=== PATIENT | female | born 2000 | race Hispanic/Latino ===

== ENCOUNTER 2025-06-24 01:51 | Emergency (ER) | payer MEDICAID, OTHER ==
[~2025-06-24] VITALS: Ht 167.6 cm; Wt 99.8 kg
[~2025-06-24 01:51] MED LIST: PREN1TAB80 PO
[2025-06-24 02:31] LABS: IMMATURE GRANULOCYTE ABSOLUTE 0.04 K/uL (0-1); NUCLEATED RED BLOOD CELLS 0.0 % (0.0-0.19); PLATELET COUNT (AUTO) 323 K/uL (130-400); RED BLOOD CELL COUNT(AUTO) 4.78 MIL/uL (4.00-5.50); RED CELL DISTRIBUTION WIDTH 13.7 % (11.0-15.5); WHITE BLOOD COUNT (AUTO) 11.5 K/uL (4.8-10.8)
--- NOTE | 2025-06-24 02:36 | ERN ---
General Chief Complaint: Psych Evaluation Stated Complaint: SUICIDAL IDEATION Time Seen by MD: 02:21 History of Present Illness Initial Comments No 24-year-old female here for evaluation of suicidal ideation. Patient states that she was in her normal state of health when she got into an argument with a family member at home. States she was recently kicked out of the house and started developing anxiety. She found out today that she was (about five weeks) and she was seen in the hospital in [place] which confirmed the . She is a poor historian at this time however states that she has suicidal ideation. States that she has a plan/multiple plans to kill herself however states that she is too much of a pussy to go through with the it right now. She is not willing at this time to tell me her plan. She does mention that she took two sleeping pills from [place] red started with the letter E. Denies auditory visual hallucination Allergies: Coded Allergies: No Known Allergies (Unverified Allergy, Unknown, 06/07/24) Home Meds Reported Medications Vits W-Ca,Fe,FA(<1Mg) ( Vitamins) 27 Mg Iron-800 Mcg Tablet, 1 TAB PO DAILY for 30 Days, #30 TAB 0 Refills 06/07/24 Past Medical History Past Medical History: No Pertinent History Past Surgical History: None Female( History) : 1 Para: 0 Aborts: 0 Psych: (+) suicidal ideation Physical Exam Physical Exam Dictation Psych: Actively suicidal, tearful but redirectable. General Appearance: (+) no apparent distress Orientation: (+) alert, (+) oriented x 3 Head/Face Trauma: No Eye: bilateral eye normal inspection, bilateral eye PERRL, bilateral eye EOMI Ear, Nose, Throat: (+) hearing grossly normal, (+) normal ENT inspection, (+) moist mucous membraine Neck: (+) normal inspection, (+) supple Heart: (+) regular; (-) murmur Gastrointestinal: (+) soft, (+) non-tender Neurologic/Psychiatric: (+) normal speech, (+) no motor defecits Results Laboratory and Microbiology Lab and Micro Result Laboratory Tests Test 06/24/25 02:22 06/24/25 02:24 White Blood Count 11.5 K/uL (4.8-10.8) H Red Blood Count 4.78 MIL/uL (4.00-5.50) Hemoglobin 14.4 g/dL (12.0-16.0) Hematocrit 42.4 % (36-48) Mean Corpuscular Volume 88.7 fL (79-99) Mean Corpuscular Hemoglobin 30.1 pg (27.0-33.0) Mean Corpuscular Hemoglobin Concent 34.0 g/dL (32.0-36.0) Red Cell Distribution Width 13.7 % (11.0-15.5) Platelet Count 323 K/uL (130-400) Mean Platelet Volume 10.6 fL (7.5-10.5) H Immature Granulocyte % (Auto) 0.3 % (0-1) Neutrophils (%) (Auto) 75.4 % (40.0-77.0) Lymphocytes (%) (Auto) 18.4 % (21.0-51.0) L Monocytes (%) (Auto) 5.2 % (3.0-13.0) Eosinophils (%) (Auto) 0.4 % (0.0-8.0) Basophils (%) (Auto) 0.3 % (0.0-5.0) Neutrophils # (Auto) 8.7 K/uL (1.8-7.7) H Lymphocytes # (Auto) 2.1 K/uL (1.0-4.8) Monocytes # (Auto) 0.6 K/uL (0.1-1.0) Eosinophils # (Auto) 0.05 K/uL (0.00-0.70) Basophils # (Auto) 0.04 K/uL (0.00-0.20) Absolute Immature Granulocyte (auto 0.04 K/uL (0-1) Nucleated Red Blood Cells 0.0 % (0.0-0.19) Sodium Level 134 mmol/L (136-145) L Potassium Level 3.7 mmol/L (3.5-5.1) Chloride Level 99 mmol/L (101-111) L Carbon Dioxide Level 28 mmol/L (21-32) Blood Urea Nitrogen 7 mg/dL (7-18) Creatinine 0.6 mg/dL (0.5-1.0) Glomerular Filtration Rate Calc 128 mL/min (>90) Random Glucose 102 mg/dL (70-105) Total Calcium 8.6 mg/dL (8.5-10.1) Human Chorionic Gonadotropin, Quant 5351 mIU/mL (0-5) H Salicylates Level < 2.8 mg/dL (2.8-20.0) L Acetaminophen Level < 1 mcg/mL (10-30) L Serum Alcohol < 3 mg/dL (0-10) Urine Color YELLOW (YELLOW) Urine Appearance CLOUDY (CLEAR) H Urine pH 6.0 (5.0-8.0) Urine Specific [place] 1.031 (1.001-1.031) Urine Protein 30 mg/dL (NEGATIVE) H Urine Glucose (UA) NEGATIVE mg/dL (NEGATIVE) Urine Ketones NEGATIVE mg/dL (NEGATIVE) Urine Occult Blood MODERATE (NEGATIVE) H Urine Nitrate 2+ (NEGATIVE) H Urine Bilirubin NEGATIVE mg/dL (NEGATIVE) Urine Urobilinogen 0.2 mg/dL (0.2-1.0) Urine Leukocyte Esterase 75 Mo/uL (NEGATIVE) H Urine RBC 2-5 /HPF (0-1) H Urine WBC 11-25 /HPF (0-1) H Urine Squamous Epithelial Cells MOD /HPF (0-2) Urine Bacteria RARE /HPF (None Seen) Urine Opiates Screen NEGATIVE (NEGATIVE) Urine Barbiturates Screen NEGATIVE (NEGATIVE) Urine Phencyclidine Screen NEGATIVE (NEGATIVE) Urine Amphetamines Screen NEGATIVE (NEGATIVE) Urine Benzodiazepines Screen NEGATIVE (NEGATIVE) Urine Cocaine Screen NEGATIVE (NEGATIVE) Urine Marijuana (THC) Screen NEGATIVE (NEGATIVE) MDM 24-year-old female here for evaluation of suicidal ideation. We will get screening labs and consult tropical once medically cleared. ED Course Orders Procedure Category Date Status Time Cbc With Differential LAB 06/24/25 Complete 02:13 Basic Metabolic Panel LAB 06/24/25 Complete 02:13 Salicylate LAB 06/24/25 Complete 02:13 Acetaminophen LAB 06/24/25 Complete 02:13 Drug Screen Urine LAB 06/24/25 Complete 02:13 Urinalysis Profile LAB 06/24/25 Complete 02:13 Alcohol, Blood LAB 06/24/25 Complete 02:13 Hcg,Quantitative LAB 06/24/25 Complete 02:13 Culture Urine MEHUL 06/24/25 In Process 03:09 Ceftriaxone 1g Vial PHA 06/24/25 In Process (Rocephine 1g Inj) 07:00 Current Medications Medications (Trade) Dose Ordered Sig/Marcos Route PRN Reason Start Time Stop Time Status Last Admin Dose Admin Ceftriaxone Sodium (ROCEphine 1G INJ) 1 gm ONCE ONCE IVPB 06/24/25 07:00 06/24/25 07:01 Vital Signs Date Time Temp Pulse Resp B/P (MAP) Pulse Ox O2 Delivery O2 Flow Rate FiO2 06/24/25 05:11 98.1 92 16 128/88 99 Room Air* 0 21 06/24/25 01:54 98.1 94 16 138/91 100 Room Air 0 As per tropical screener patient has not suicidal. She had an argument with significant other at home and was upset and started seeing things she did not mean. She is currently not suicidal. However she does show signs of a UTI. We will treat this with Rocephin here and discharged home on p.o. antibiotics. All labs and imaging reviewed with the patient. All questions answered at this time DX & DISP Disposition: Discharge Departure Impression: Primary Impression: Acute anxiety Additional Impressions: UTI (urinary tract infection), , Domestic problems Condition: Stable Scripts Cephalexin (Cephalexin) 500 Mg Tablet 1 TAB PO BID for 7 Days, #14 TAB 0 Refills Prov: ML BARNETT MD 06/24/25 Referrals: SELF,REFERRAL (PCP) ML BARNETT MD Jun 24, 2025 02:36
[2025-06-24 02:40] LABS: CREATININE 0.6 mg/dL (0.5-1.0); GLOMERULAR FILTR. RATE CALC 128 mL/min (>90); GLUCOSE,RANDOM 102 mg/dL (70-105); SODIUM SERUM 134 mmol/L (136-145); UREA NITROGEN, BLOOD 7 mg/dL (7-18)
[2025-06-24 03:03] LABS: APPEARANCE,URINE CLOUDY (CLEAR); GLUCOSE, URINE (UA) NEGATIVE (NEGATIVE); LEUKOCYTE ESTERASE ,URINE 75 Leu/uL (NEGATIVE); NITRATE,URINE 2+ (NEGATIVE); OCCULT BLOOD,URINE MODERATE (NEGATIVE)
[2025-06-24 03:07] LABS: ALCOHOL, BLOOD < 3 mg/dL (0-10); HCG,QUANTITATIVE 5351 mIU/mL (0-5)
[2025-06-24 03:09] LABS: ADD UA MICROSCOPIC YES
[2025-06-24 03:11] LABS: AMPHET/METH SCREEN,URINE NEGATIVE (NEGATIVE); BARBITURATE SCREEN, URINE NEGATIVE (NEGATIVE); CANNABINOID SCREEN,URINE NEGATIVE (NEGATIVE); COCAINE SCREEN,URINE NEGATIVE (NEGATIVE)
[2025-06-24 03:12] LABS: SQUAMOUS EPITHELIAL CELL,UR MOD /HPF (0-2)
--- NOTE | 2025-06-24 03:21 | NUR ---
[facility] CRISIS LINE CALLED, PENDING SCREENER FOR EVALUATION
--- NOTE | 2025-06-24 05:02 | NUR ---
[facility] CRISIS LINE CALLED FOR UPDATE ON ETA. THEY WILL REACH OUT TO THE SCREENER AND CALL US WITH ETA
--- NOTE | 2025-06-24 05:04 | NUR ---
[facility] SCREENER KAVON CALL TO GIVE ETA, SHE IS ON HER WAY.
--- NOTE | 2025-06-24 05:28 | NUR ---
MENDEL JIMENEZ SCREENER HERE TO EVALUATE PATIENT
--- NOTE | 2025-06-24 06:37 | NUR ---
MENDEL [place] SCREENER CONTINUES TO SPEAK WITH PATIENT
[2025-06-24] MEDS ORDERED: CEPH500T PO (06:50)
--- NOTE | 2025-06-24 07:11 | NUR ---
report given to Carlos GARNER
[2025-06-24 07:50] VITALS: BP 114/80; PULSE 88; RESP 16; TEMP 98.5; O2SAT 100
== END 2025-06-24 07:53 | disposition home or self-care (01) ==
LOC: EDH 01:51
DX: O99.341 Other mental disorders complicating pregnancy, first trimester (principal); F41.9 Anxiety disorder, unspecified; R45.851 Suicidal ideations; O23.41 Unspecified infection of urinary tract in pregnancy, first trimester; N39.0 Urinary tract infection, site not specified; Z3A.01 Less than 8 weeks gestation of pregnancy
CPT/HCPCS: 99284; 96365; 80048; 80305; 84702; 85025; 87086 ×2; 87186; 81001; 36415; G0481; J0696